=== PATIENT | male | born 1955 | race Caucasian/White ===

== ENCOUNTER 2019-06-02 08:45 | Inpatient (IN) | payer MEDICARE, OTHER ==
[~2019-06-02 08:45] MED LIST: ETOMIDATE 20 MG INJ
[2019-06-02] MEDS ORDERED: VANCOMYCIN IV PER PHARMACY XX (09:30)
[2019-06-02 10:22] LABS: ADD MAN DIFF? NO
[2019-06-02 10:25] LABS: WHITE BLOOD COUNT 14.5 10^3/ul (4.8-10.8)
[2019-06-02 10:25] LABS: BASOPHIL # 0.1 10^3/ul (0.0-0.1); BASOPHILS % 0.3 % (0.0-2.0); EOSINOPHILS % 0.2 % (0.0-7.0); HEMATOCRIT 28.5 % (42.0-52.0); HEMOGLOBIN 8.3 g/dl (14.0-18.0); LYMPHOCYTES % 7.1 % (15.0-51.0); MEAN CORPUSCULAR HEMOGLOBIN 30.1 pg (29.0-33.0); MEAN CORPUSCULAR HGB CONC 29.1 g/dl (32.0-37.0); MEAN CORPUSCULAR VOLUME 103.3 fl (82.0-101.0); MEAN PLATELET VOLUME 9.9 fl (7.4-10.4); MONOCYTE # 0.9 10^3/ul (0.3-0.9); MONOCYTES % 5.9 % (0.0-11.0); NEUTROPHIL # 12.2 10^3/ul (1.6-7.5); NEUTROPHILS % 84.4 % (39.0-77.0); NUCLEATED RED BLOOD CELLS% 0.1 /100WBC (0.0-0.0); PLATELET COUNT 372 10^3/UL (140-415); RED BLOOD COUNT 2.76 10^6/ul (4.70-6.10); RED CELL DISTRIBUTION WIDTH 18.7 % (11.5-14.5)
[2019-06-02 10:46] LABS: AADO2 Arterial 129.1 mmHg (7.0-24.0); Arterial Blood Gas Oxygen Sat 98.9 mmHG (95.0-98.0); Arterial COHb 0.3 % (0.0-3.0); Arterial Fraction of Oxyhgb 97.9 % (93.0-99.0); Arterial MetHb 0.7 % (0.0-1.5); Arterial pCO2 40.2 mmhg (35-45); Blood Gas IEPAP 15/5; MODE MASK - BIPAP; Site Right Brachial
[2019-06-02 10:50] LABS: ALANINE AMINOTRANSFERASE 18 IU/L (13-69); ALBUMIN 2.2 g/dl (3.3-4.9); ALBUMIN/GLOBULIN RATIO 0.53; ALKALINE PHOSPHATASE 102 IU/L (42-121); ANION GAP 9 (5-13); ASPARTATE AMINO TRANSFERASE 15 IU/L (15-46); BILIRUBIN,INDIRECT 0.1 mg/dl (0-1.1); BILIRUBIN,TOTAL 0.1 mg/dl (0.2-1.3); BLOOD UREA NITROGEN 104 mg/dl (7-20); CALCIUM 9.2 mg/dl (8.4-10.2); CARBON DIOXIDE 11 mmol/L (21-31); CHLORIDE 120 mmol/L (97-110); Estimated GFR 23 mL/min (>60); GLUCOSE 221 mg/dl (70-220); MAGNESIUM 2.5 mg/dl (1.7-2.5); PHOSPHORUS 3.7 mg/dl (2.5-4.9); POTASSIUM 4.1 mmol/L (3.5-5.1); SODIUM 140 mmol/L (135-144); TOTAL PROTEIN 6.3 g/dl (6.1-8.1)
[2019-06-02] MEDS ORDERED: METOCLOPRAMIDE 10 MG INJ IV (11:00)
[2019-06-02] MEDS ORDERED: ONDANSETRON 4 MG TAB PO (11:00)
[2019-06-02] MEDS: DEXTROSE 5%-0.9% NACL 1,000 ML IV (11:06)
[2019-06-02] MEDS: NA BICARBONATE 8.4% 50 ML SYG IV ×2 (11:06→16:59)
[2019-06-02 11:25] LABS: LACTIC ACID 1.1 mmol/L (0.5-2.0)
[2019-06-02] MEDS ORDERED: GLUCAGON 1 MG INJ IV (11:30)
[2019-06-02] MEDS ORDERED: hydrALAzine 20 MG INJ IV (11:30)
[2019-06-02] MEDS ORDERED: DEXTROSE 50% 50 ML SYRINGE IV (11:30)
[2019-06-02] MEDS: FENTAnyl 50 MCG/ML VIAL IV ×2 (11:45→12:00)
[2019-06-02] MEDS: SUCCINYLCHOLINE CHLORIDE 100 MG/5 ML SYG IV (12:00)
[2019-06-02] MEDS: ETOMIDATE 20 MG INJ IV (12:00)
[2019-06-02] MEDS ORDERED: FENTAnyl (DRIP) 1000 mcg/100mL 100 ML IV (12:00)
[2019-06-02] MEDS ORDERED: SODIUM BICARBONATE (IV ADD) 150 MEQ in DEXTROSE 5% 1,000 ML IV (12:30)
[2019-06-02] MEDS ORDERED: GENTAMICIN 0.3% 5 ML OPH BOTH EYES (13:00)
[2019-06-02] MEDS: SODIUM BICARBONATE IN D5W 1,000 ML IV ×3 (13:47→23:36)
[2019-06-02] MEDS: LACTATED RINGER'S 1,000 ML IV (13:47)
[2019-06-02 15:44] LABS: AADO2 Arterial 213.3 mmHg (7.0-24.0); Allen Test ACCEPTAB; Arterial Base Excess -15.2 mmol/L (-3.0-3); Arterial Blood Gas Oxygen Sat 99.5 mmHG (95.0-98.0); Arterial COHb 0.3 % (0.0-3.0); Arterial Fraction of Oxyhgb 98.8 % (93.0-99.0); Arterial HCO3 11.8 mmol/L (22.0-26.0); Arterial MetHb 0.4 % (0.0-1.5); Arterial pCO2 32.1 mmhg (35-45); MODE VENT - AC; Site Right Radial
[2019-06-02 16:33] LABS: CREATININE,URINE RANDOM 16.35 mg/dl (20-370)
[2019-06-02 16:33] LABS: SODIUM,URINE RANDOM 119 mmol/L (30-90)
[2019-06-02 16:52] LABS: PROTEIN URINE > 600.0 mg/dl (0.0-11.9)
[2019-06-02 16:56] LABS: UR COLOR YELLOW (YELLOW)
[2019-06-02 16:58] LABS: UR GRANULAR CAST FEW /HPF (NONE SEEN)
[2019-06-02] MEDS: PIPER-TAZO 3.375 GM IV (PMX) 100 ML IVPB ×2 (16:59→21:46)
[2019-06-02 17:02] LABS: UR CLARITY TURBID (CLEAR)
[2019-06-02 17:03] LABS: UR SPECIFIC GRAVITY (Dip) 1.017 (1.003-1.030); UR TOTAL PROTEIN (Dip) 2+ mg/dl (NEGATIVE)
[2019-06-02 17:04] LABS: UR BILIRUBIN (Dip) NEGATIVE (NEGATIVE); UR BLOOD (Dip) 2+ mg/dL (NEGATIVE); UR GLUCOSE (Dip) NEGATIVE (NEGATIVE); UR KETONES (Dip) NEGATIVE (NEGATIVE); UR NITRITE (Dip) NEGATIVE (NEGATIVE); UR UROBILINOGEN (Dip) NEGATIVE (NEGATIVE)
[2019-06-02 17:05] LABS: ADD UMIC YES; UR BACTERIA MANY /HPF (NONE SEEN); UR LEUKOCYTE ESTERASE (Dip) 1+ Leu/ul (NEGATIVE)
[2019-06-02 17:10] LABS: URINE SPECIFIC GRAVITY (Dip) 1.017 (1.003-1.030)
[2019-06-02 17:57] LABS: UR ASCORBIC ACID 40 mg/dL (NEGATIVE); UR RBC 0 /HPF (0-5)
[2019-06-02] MEDS: EPOETIN ALFA-EPBX (ESRD) 10,000 UNIT/ML VIAL SC (20:03)
[2019-06-02] MEDS ORDERED: PENDING SANTYL ORDER FOR WOUND CARE XX (20:30)
[2019-06-02] MEDS: BALSAM PERU/CASTOR OIL 60 GM TUBE TOP (20:46)
[2019-06-02] MEDS: CHOLECALCIFEROL 1,000 UNIT TAB NGT (20:46)
[2019-06-02] MEDS: ATORVASTATIN 10 MG TAB GTB (20:47)
[2019-06-02] MEDS ORDERED: APIXABAN 5 MG TABLET GTB (21:00)
[2019-06-02] MEDS: INSULIN ASPART [NOVOLOG] 3 ML PEN SC (21:00)
[2019-06-02] MEDS ORDERED: COLLAGENASE 5 GM (UD JAR) TOP (22:00)
[2019-06-03 05:13] LABS: AADO2 Arterial 271.6 mmHg (7.0-24.0); Allen Test ACCEPTAB; Arterial Base Excess -8.7 mmol/L (-3.0-3); Arterial Blood Gas Oxygen Sat 89.4 mmHG (95.0-98.0); Arterial COHb 0.3 % (0.0-3.0); Arterial Fraction of Oxyhgb 88.6 % (93.0-99.0); Arterial HCO3 15.6 mmol/L (22.0-26.0); Arterial MetHb 0.6 % (0.0-1.5); Arterial pCO2 28.6 mmhg (35-45); MODE VENT - AC; Site Right Radial
[2019-06-03 05:49] LABS: ADD MAN DIFF? NO
[2019-06-03 05:55] LABS: WHITE BLOOD COUNT 10.4 10^3/ul (4.8-10.8)
[2019-06-03 05:55] LABS: BASOPHILS % 0.3 % (0.0-2.0); EOSINOPHILS % 0.3 % (0.0-7.0); HEMATOCRIT 25.1 % (42.0-52.0); HEMOGLOBIN 7.7 g/dl (14.0-18.0); LYMPHOCYTES % 9.3 % (15.0-51.0); MEAN CORPUSCULAR HEMOGLOBIN 30.2 pg (29.0-33.0); MEAN CORPUSCULAR HGB CONC 30.7 g/dl (32.0-37.0); MEAN CORPUSCULAR VOLUME 98.4 fl (82.0-101.0); MEAN PLATELET VOLUME 10.4 fl (7.4-10.4); MONOCYTE # 0.7 10^3/ul (0.3-0.9); MONOCYTES % 7.1 % (0.0-11.0); NEUTROPHIL # 8.5 10^3/ul (1.6-7.5); NEUTROPHILS % 81.5 % (39.0-77.0); NUCLEATED RED BLOOD CELLS% 0.3 /100WBC (0.0-0.0); PLATELET COUNT 336 10^3/UL (140-415); RED BLOOD COUNT 2.55 10^6/ul (4.70-6.10); RED CELL DISTRIBUTION WIDTH 18.6 % (11.5-14.5)
[2019-06-03 06:16] LABS: ANION GAP 11 (5-13); BLOOD UREA NITROGEN 104 mg/dl (7-20); CARBON DIOXIDE 18 mmol/L (21-31); CHLORIDE 115 mmol/L (97-110); CREATININE 2.84 mg/dl (0.61-1.24); GLUCOSE 136 mg/dl (70-220); POTASSIUM 3.3 mmol/L (3.5-5.1); SODIUM 144 mmol/L (135-144)
[2019-06-03 06:16] LABS: VANCOMYCIN,RANDOM 17.1 ug/ml
[2019-06-03 06:17] LABS: ALANINE AMINOTRANSFERASE 16 IU/L (13-69); ALBUMIN 2.1 g/dl (3.3-4.9); ALBUMIN/GLOBULIN RATIO 0.53; ALKALINE PHOSPHATASE 78 IU/L (42-121); ASPARTATE AMINO TRANSFERASE 24 IU/L (15-46); BILIRUBIN,INDIRECT 0.2 mg/dl (0-1.1); BILIRUBIN,TOTAL 0.2 mg/dl (0.2-1.3); CALCIUM 8.7 mg/dl (8.4-10.2); Estimated GFR 23 mL/min (>60)
[2019-06-03] MEDS: FUROSEMIDE 40 MG INJ IV (06:17)
[2019-06-03] MEDS: PIPER-TAZO 3.375 GM IV (PMX) 100 ML IVPB (06:17)
[2019-06-03 06:21] LABS: LACTIC ACID 4.3 mmol/L (0.5-2.0)
[2019-06-03 06:22] LABS: INR 1.32; PROTIME 16.5 Sec (11.9-14.9); PT RATIO 1.3
[2019-06-03 08:24] LABS: RETICULOCYTE COUNT # 0.097 X10^6 (0.020-0.110); RETICULOCYTE COUNT % 3.9 % (0.5-1.5)
[2019-06-03 08:24] LABS: RETICULOCYTE RBC 2.48
[2019-06-03] MEDS: CHOLECALCIFEROL 1,000 UNIT TAB NGT ×2 (08:39→21:01)
[2019-06-03] MEDS: BALSAM PERU/CASTOR OIL 60 GM TUBE TOP ×2 (08:39→21:01)
[2019-06-03] MEDS: FERROUS SULFATE 60 MG/ML 5ML CUP NGT (08:39)
[2019-06-03] MEDS: ASPIRIN 81 MG TAB GTB (08:39)
[2019-06-03] MEDS: FINASTERIDE 5 MG TAB GTB (08:40)
[2019-06-03] MEDS: COLLAGENASE 5 GM (UD JAR) TOP (08:40)
[2019-06-03] MEDS: ASCORBIC ACID 500 MG TAB NGT (08:40)
[2019-06-03] MEDS: POTASSIUM CHLORIDE 20 MEQ POWDER FOR ORAL SOLN NGT (08:40)
[2019-06-03] MEDS: AMLODIPINE 5 MG TAB GTB (09:00)
[2019-06-03 09:03] LABS: IRON 14 ug/dl (35-150)
[2019-06-03] MEDS: INSULIN ASPART [NOVOLOG] 3 ML PEN SC ×2 (09:10→21:00)
[2019-06-03 09:12] LABS: % IRON SATURATION 10 % SAT (22-52); TOTAL IRON BINDING CAPACITY 136 ug/dl (241-421)
[2019-06-03] MEDS: VANCOMYCIN 500 MG (PMX) 100 ML IVPB (09:12)
[2019-06-03] MEDS: SODIUM BICARBONATE IN D5W 1,000 ML IV (09:15)
[2019-06-03 10:12] LABS: FOLATE 16.1 ng/ml (2.8-20.0)
[2019-06-03] MEDS: FLUCONAZOLE 100 MG TAB PO (17:41)
[2019-06-03] MEDS: VANCOMYCIN HCL 250 MG/5ML POSYG PO (18:52)
[2019-06-03] MEDS: MEROPENEM 500MG/50 ML (PMX) 50 ML IVPB (21:00)
[2019-06-03] MEDS: ATORVASTATIN 10 MG TAB GTB (21:01)
[2019-06-04] MEDS: VANCOMYCIN HCL 250 MG/5ML POSYG PO ×4 (00:23→18:28)
[2019-06-04] MEDS: SODIUM BICARBONATE IN D5W 1,000 ML IV (02:00)
[2019-06-04 05:47] LABS: ADD MAN DIFF? NO
[2019-06-04 05:50] LABS: WHITE BLOOD COUNT 12.2 10^3/ul (4.8-10.8)
[2019-06-04 05:50] LABS: BASOPHIL # 0.1 10^3/ul (0.0-0.1); BASOPHILS % 0.4 % (0.0-2.0); EOSINOPHILS # 0.1 10^3/ul (0.0-0.5); EOSINOPHILS % 0.4 % (0.0-7.0); HEMOGLOBIN 7.6 g/dl (14.0-18.0); LYMPHOCYTES # 1.3 10^3/ul (0.8-2.9); LYMPHOCYTES % 10.3 % (15.0-51.0); MEAN CORPUSCULAR HEMOGLOBIN 29.6 pg (29.0-33.0); MEAN CORPUSCULAR HGB CONC 30.4 g/dl (32.0-37.0); MEAN CORPUSCULAR VOLUME 97.3 fl (82.0-101.0); MEAN PLATELET VOLUME 10.5 fl (7.4-10.4); MONOCYTES % 7.9 % (0.0-11.0); NEUTROPHIL # 9.7 10^3/ul (1.6-7.5); NEUTROPHILS % 79.1 % (39.0-77.0); NUCLEATED RED BLOOD CELLS% 0.2 /100WBC (0.0-0.0); PLATELET COUNT 359 10^3/UL (140-415); RED BLOOD COUNT 2.57 10^6/ul (4.70-6.10)
[2019-06-04 05:59] LABS: AADO2 Arterial 151.5 mmHg (7.0-24.0); Allen Test ACCEPTAB; Arterial Blood Gas Oxygen Sat 97.8 mmHG (95.0-98.0); Arterial COHb 0.3 % (0.0-3.0); Arterial HCO3 19.3 mmol/L (22.0-26.0); Arterial MetHb 0.5 % (0.0-1.5); Arterial pCO2 28.6 mmhg (35-45); MODE VENT - AC; Site Right Radial
[2019-06-04 06:46] LABS: ANION GAP 13 (5-13); BLOOD UREA NITROGEN 110 mg/dl (7-20); CALCIUM 8.8 mg/dl (8.4-10.2); CARBON DIOXIDE 22 mmol/L (21-31); CHLORIDE 110 mmol/L (97-110); CREATININE 3.34 mg/dl (0.61-1.24); Estimated GFR 19 mL/min (>60); GLUCOSE 140 mg/dl (70-220); POTASSIUM 3.5 mmol/L (3.5-5.1); SODIUM 145 mmol/L (135-144)
[2019-06-04] MEDS: SOD CHLORIDE 0.45% 1,000 ML IV (09:50)
[2019-06-04] MEDS: MEROPENEM 500MG/50 ML (PMX) 50 ML IVPB ×2 (09:50→20:51)
[2019-06-04] MEDS: INSULIN ASPART [NOVOLOG] 3 ML PEN SC ×2 (09:54→21:02)
[2019-06-04] MEDS: FERROUS SULFATE 60 MG/ML 5ML CUP NGT (09:55)
[2019-06-04] MEDS: CHOLECALCIFEROL 1,000 UNIT TAB NGT ×2 (09:56→20:50)
[2019-06-04] MEDS: AMLODIPINE 5 MG TAB GTB (09:56)
[2019-06-04] MEDS: ASCORBIC ACID 500 MG TAB NGT (09:57)
[2019-06-04] MEDS: FINASTERIDE 5 MG TAB GTB (09:57)
[2019-06-04] MEDS: FLUCONAZOLE 100 MG TAB PO (09:57)
[2019-06-04] MEDS: BALSAM PERU/CASTOR OIL 60 GM TUBE TOP ×2 (09:59→20:55)
[2019-06-04] MEDS: COLLAGENASE 5 GM (UD JAR) TOP (09:59)
[2019-06-04 10:36] LABS: Allen Test ACCEPTAB; Arterial Base Excess -4.3 mmol/L (-3.0-3); Arterial COHb 0.3 % (0.0-3.0); Arterial Fraction of Oxyhgb 94.3 % (93.0-99.0); Arterial HCO3 19.6 mmol/L (22.0-26.0); Arterial MetHb 0.4 % (0.0-1.5); Arterial pCO2 31.4 mmhg (35-45); MODE VENT - AC; Site Left Radial
[2019-06-04 14:34] LABS: OCCULT BLOOD STOOL NEGATIVE (NEGATIVE)
[2019-06-04 17:36] LABS: CREATININE, RANDOM URINE 18 mg/dL (20-320); MICROALBUMIN/CREATININE RATIO 8667 (<30)
[2019-06-04] MEDS: ZYVOX 600 MG TAB PO (20:50)
[2019-06-04] MEDS: MUPIROCIN 2% 22 GM OINT TOP (20:57)
[2019-06-04] MEDS: ATORVASTATIN 10 MG TAB GTB (20:57)
[2019-06-05] MEDS: VANCOMYCIN HCL 250 MG/5ML POSYG PO ×5 (01:08→23:55)
[2019-06-05 04:34] LABS: ADD MAN DIFF? NO
[2019-06-05 04:37] LABS: WHITE BLOOD COUNT 11.5 10^3/ul (4.8-10.8)
[2019-06-05 04:37] LABS: BASOPHIL # 0.1 10^3/ul (0.0-0.1); BASOPHILS % 0.4 % (0.0-2.0); EOSINOPHILS # 0.2 10^3/ul (0.0-0.5); EOSINOPHILS % 1.6 % (0.0-7.0); HEMOGLOBIN 7.2 g/dl (14.0-18.0); LYMPHOCYTES # 1.1 10^3/ul (0.8-2.9); LYMPHOCYTES % 9.8 % (15.0-51.0); MEAN CORPUSCULAR HEMOGLOBIN 29.8 pg (29.0-33.0); MEAN CORPUSCULAR VOLUME 99.2 fl (82.0-101.0); MEAN PLATELET VOLUME 10.5 fl (7.4-10.4); MONOCYTES % 8.8 % (0.0-11.0); NEUTROPHIL # 8.9 10^3/ul (1.6-7.5); NEUTROPHILS % 77.1 % (39.0-77.0); NUCLEATED RED BLOOD CELLS% 0.2 /100WBC (0.0-0.0); PLATELET COUNT 307 10^3/UL (140-415); RED BLOOD COUNT 2.42 10^6/ul (4.70-6.10); RED CELL DISTRIBUTION WIDTH 19.1 % (11.5-14.5)
[2019-06-05 04:53] LABS: INR 1.19; PROTIME 15.2 Sec (11.9-14.9); PT RATIO 1.2
[2019-06-05 04:59] LABS: PARTIAL THROMBOPLASTIN TIME 40.5 Sec (23.0-35.0)
[2019-06-05 05:02] LABS: ANION GAP 12 (5-13); BLOOD UREA NITROGEN 111 mg/dl (7-20); CALCIUM 8.7 mg/dl (8.4-10.2); CARBON DIOXIDE 23 mmol/L (21-31); CHLORIDE 108 mmol/L (97-110); CREATININE 3.54 mg/dl (0.61-1.24); Estimated GFR 18 mL/min (>60); GLUCOSE 126 mg/dl (70-220); POTASSIUM 3.3 mmol/L (3.5-5.1); SODIUM 143 mmol/L (135-144)
[2019-06-05 05:06] LABS: B-TYPE NATRIURETIC PEPTIDE 6880 PG/ML (0-125)
[2019-06-05] MEDS: SOD CHLORIDE 0.45% 1,000 ML IV (05:27)
[2019-06-05] MEDS: FUROSEMIDE 40 MG INJ IV (07:55)
[2019-06-05] MEDS: POTASSIUM CHLORIDE 100 ML IVPB (07:55)
[2019-06-05] MEDS: ASCORBIC ACID 500 MG TAB NGT (08:35)
[2019-06-05] MEDS: COLLAGENASE 5 GM (UD JAR) TOP (08:35)
[2019-06-05] MEDS: CHOLECALCIFEROL 1,000 UNIT TAB NGT ×2 (08:35→21:11)
[2019-06-05] MEDS: AMLODIPINE 5 MG TAB GTB (08:36)
[2019-06-05] MEDS: FINASTERIDE 5 MG TAB GTB (08:36)
[2019-06-05] MEDS: ZYVOX 600 MG TAB PO ×2 (08:36→21:12)
[2019-06-05] MEDS: FLUCONAZOLE 100 MG TAB PO (08:36)
[2019-06-05] MEDS: ZINC SULFATE 220 MG CAP NGT (08:36)
[2019-06-05] MEDS: MEROPENEM 500MG/50 ML (PMX) 50 ML IVPB ×2 (08:37→21:11)
[2019-06-05] MEDS: FERROUS SULFATE 60 MG/ML 5ML CUP NGT (08:37)
[2019-06-05] MEDS: MUPIROCIN 2% 22 GM OINT TOP ×2 (08:38→21:13)
[2019-06-05] MEDS: BALSAM PERU/CASTOR OIL 60 GM TUBE TOP ×2 (08:38→21:13)
[2019-06-05] MEDS: INSULIN ASPART [NOVOLOG] 3 ML PEN SC ×2 (09:00→21:00)
[2019-06-05] MEDS ORDERED: CEFAZOLIN 1 GM INJ IV (13:30)
[2019-06-05] MEDS: CEFAZOLIN 2 GM/50 ML (PMX) 50 ML IVPB (15:44)
[2019-06-05] MEDS: APIXABAN 5 MG TABLET GTB (19:16)
[2019-06-05] MEDS: ATORVASTATIN 10 MG TAB GTB (21:13)
[2019-06-05] MEDS: FENTAnyl (DRIP) 1000 mcg/100mL 100 ML IV (22:32)
[2019-06-06] MEDS: PANTOPRAZOLE 40 MG INJ IV (05:06)
[2019-06-06 05:07] LABS: ADD MAN DIFF? NO
[2019-06-06] MEDS: VANCOMYCIN HCL 250 MG/5ML POSYG PO ×4 (05:07→23:53)
[2019-06-06 05:13] LABS: ABNORMAL IP MESSAGE 1; BASOPHILS % 0.4 % (0.0-2.0); EOSINOPHILS # 0.2 10^3/ul (0.0-0.5); EOSINOPHILS % 1.6 % (0.0-7.0); HEMOGLOBIN 7.5 g/dl (14.0-18.0); LYMPHOCYTES # 0.5 10^3/ul (0.8-2.9); LYMPHOCYTES % 5.4 % (15.0-51.0); MEAN CORPUSCULAR HEMOGLOBIN 29.8 pg (29.0-33.0); MEAN CORPUSCULAR VOLUME 99.2 fl (82.0-101.0); MEAN PLATELET VOLUME 10.6 fl (7.4-10.4); MONOCYTE # 0.6 10^3/ul (0.3-0.9); NEUTROPHIL # 7.8 10^3/ul (1.6-7.5); NEUTROPHILS % 84.1 % (39.0-77.0); NUCLEATED RED BLOOD CELLS% 0.2 /100WBC (0.0-0.0); PLATELET COUNT 300 10^3/UL (140-415); POSITIVE DIFF @See below; RED BLOOD COUNT 2.52 10^6/ul (4.70-6.10); RED CELL DISTRIBUTION WIDTH 18.7 % (11.5-14.5)
[2019-06-06 05:13] LABS: WHITE BLOOD COUNT 9.3 10^3/ul (4.8-10.8)
[2019-06-06 05:33] LABS: ANION GAP 11 (5-13); BLOOD UREA NITROGEN 114 mg/dl (7-20); CALCIUM 8.7 mg/dl (8.4-10.2); CARBON DIOXIDE 22 mmol/L (21-31); CHLORIDE 110 mmol/L (97-110); Estimated GFR 17 mL/min (>60); GLUCOSE 64 mg/dl (70-220); POTASSIUM 3.6 mmol/L (3.5-5.1); SODIUM 143 mmol/L (135-144)
[2019-06-06] MEDS: NORepinephrine 8MG/250 ML (PMX 250 ML IV (05:49)
[2019-06-06] MEDS: FUROSEMIDE 40 MG INJ IV (07:42)
[2019-06-06] MEDS: INSULIN ASPART [NOVOLOG] 3 ML PEN SC ×2 (08:07→20:31)
[2019-06-06] MEDS: FLUCONAZOLE 100 MG TAB PO (08:07)
[2019-06-06] MEDS: CHOLECALCIFEROL 1,000 UNIT TAB NGT ×2 (08:07→20:30)
[2019-06-06] MEDS: ZYVOX 600 MG TAB PO ×2 (08:07→20:30)
[2019-06-06] MEDS: ZINC SULFATE 220 MG CAP NGT (08:07)
[2019-06-06] MEDS: FINASTERIDE 5 MG TAB GTB (08:08)
[2019-06-06] MEDS: FERROUS SULFATE 60 MG/ML 5ML CUP NGT (08:08)
[2019-06-06] MEDS: MEROPENEM 500MG/50 ML (PMX) 50 ML IVPB ×2 (08:08→20:29)
[2019-06-06] MEDS: ASCORBIC ACID 500 MG TAB NGT (08:08)
[2019-06-06] MEDS: MUPIROCIN 2% 22 GM OINT TOP ×2 (08:08→20:31)
[2019-06-06] MEDS: BALSAM PERU/CASTOR OIL 60 GM TUBE TOP ×2 (08:09→20:31)
[2019-06-06] MEDS: COLLAGENASE 5 GM (UD JAR) TOP (08:09)
[2019-06-06] MEDS: AMLODIPINE 5 MG TAB GTB (09:00)
[2019-06-06] MEDS: APIXABAN 5 MG TABLET GTB ×2 (09:48→20:30)
[2019-06-06] MEDS ORDERED: NORepinephrine 8MG/250 ML (PMX 250 ML IV ×2 (10:00→18:30)
[2019-06-06 11:41] LABS: AADO2 Arterial 89.6 mmHg (7.0-24.0); Allen Test ACCEPTAB; Arterial Base Excess -5.9 mmol/L (-3.0-3); Arterial Blood Gas Oxygen Sat 96.3 mmHG (95.0-98.0); Arterial COHb 0.3 % (0.0-3.0); Arterial Fraction of Oxyhgb 95.6 % (93.0-99.0); Arterial HCO3 18.7 mmol/L (22.0-26.0); Arterial MetHb 0.4 % (0.0-1.5); Arterial pCO2 33.1 mmhg (35-45); Blood Gas PS 10; MODE VENT - CPAP; Site Right Radial
[2019-06-06] MEDS: ATORVASTATIN 10 MG TAB GTB (20:31)
[2019-06-06 21:41] LABS: IMMEDIATE SPIN CROSSMATCH 1 1
[2019-06-06] MEDS: SOD CHLORIDE 0.9% 250 ML IV* (21:50)
[2019-06-07 04:49] LABS: ADD MAN DIFF? NO
[2019-06-07 04:52] LABS: BASOPHIL # 0.1 10^3/ul (0.0-0.1); BASOPHILS % 0.6 % (0.0-2.0); EOSINOPHILS # 0.2 10^3/ul (0.0-0.5); EOSINOPHILS % 2.2 % (0.0-7.0); HEMOGLOBIN 8.7 g/dl (14.0-18.0); LYMPHOCYTES # 1.1 10^3/ul (0.8-2.9); LYMPHOCYTES % 12.1 % (15.0-51.0); MEAN CORPUSCULAR HEMOGLOBIN 29.7 pg (29.0-33.0); MEAN PLATELET VOLUME 10.5 fl (7.4-10.4); MONOCYTE # 0.7 10^3/ul (0.3-0.9); MONOCYTES % 7.5 % (0.0-11.0); NEUTROPHIL # 6.6 10^3/ul (1.6-7.5); NEUTROPHILS % 74.9 % (39.0-77.0); PLATELET COUNT 278 10^3/UL (140-415); RED BLOOD COUNT 2.93 10^6/ul (4.70-6.10); RED CELL DISTRIBUTION WIDTH 17.8 % (11.5-14.5)
[2019-06-07 04:52] LABS: WHITE BLOOD COUNT 8.8 10^3/ul (4.8-10.8)
[2019-06-07 05:12] LABS: ANION GAP 11 (5-13); BLOOD UREA NITROGEN 110 mg/dl (7-20); CALCIUM 8.8 mg/dl (8.4-10.2); CARBON DIOXIDE 18 mmol/L (21-31); CHLORIDE 113 mmol/L (97-110); CREATININE 3.93 mg/dl (0.61-1.24); Estimated GFR 16 mL/min (>60); GLUCOSE 96 mg/dl (70-220); POTASSIUM 3.6 mmol/L (3.5-5.1); SODIUM 142 mmol/L (135-144)
[2019-06-07] MEDS: PANTOPRAZOLE 40 MG INJ IV (05:16)
[2019-06-07] MEDS: VANCOMYCIN HCL 250 MG/5ML POSYG PO ×3 (05:16→18:01)
[2019-06-07] MEDS: FLUCONAZOLE 100 MG TAB PO (08:54)
[2019-06-07] MEDS: ZYVOX 600 MG TAB PO (08:54)
[2019-06-07] MEDS: ZINC SULFATE 220 MG CAP NGT (08:54)
[2019-06-07] MEDS: APIXABAN 5 MG TABLET GTB ×2 (08:54→20:50)
[2019-06-07] MEDS: FERROUS SULFATE 60 MG/ML 5ML CUP NGT (08:54)
[2019-06-07] MEDS: CHOLECALCIFEROL 1,000 UNIT TAB NGT ×2 (08:54→20:52)
[2019-06-07] MEDS: FINASTERIDE 5 MG TAB GTB (08:55)
[2019-06-07] MEDS: MEROPENEM 500MG/50 ML (PMX) 50 ML IVPB ×2 (08:56→20:50)
[2019-06-07] MEDS: ASCORBIC ACID 500 MG TAB NGT (08:56)
[2019-06-07] MEDS: AMLODIPINE 5 MG TAB GTB (08:56)
[2019-06-07] MEDS: BALSAM PERU/CASTOR OIL 60 GM TUBE TOP ×2 (08:58→20:57)
[2019-06-07] MEDS: COLLAGENASE 5 GM (UD JAR) TOP (08:59)
[2019-06-07] MEDS: MUPIROCIN 2% 22 GM OINT TOP ×2 (08:59→20:57)
[2019-06-07] MEDS: ASPIRIN 81 MG TAB GTB (09:00)
[2019-06-07] MEDS: INSULIN ASPART [NOVOLOG] 3 ML PEN SC ×2 (09:43→21:26)
[2019-06-07] MEDS: ATORVASTATIN 10 MG TAB GTB (20:52)
[2019-06-07] MEDS: DOXYCYCLINE 100 MG TAB PO (20:53)
[2019-06-08] MEDS: VANCOMYCIN HCL 250 MG/5ML POSYG PO ×4 (00:26→17:32)
[2019-06-08] MEDS: PANTOPRAZOLE 40 MG INJ IV (05:48)
[2019-06-08 06:30] LABS: ADD MAN DIFF? NO
[2019-06-08 06:32] LABS: BASOPHILS % 0.4 % (0.0-2.0); EOSINOPHILS # 0.3 10^3/ul (0.0-0.5); EOSINOPHILS % 2.3 % (0.0-7.0); HEMATOCRIT 30.6 % (42.0-52.0); HEMOGLOBIN 9.3 g/dl (14.0-18.0); LYMPHOCYTES # 1.2 10^3/ul (0.8-2.9); LYMPHOCYTES % 10.6 % (15.0-51.0); MEAN CORPUSCULAR HEMOGLOBIN 30.2 pg (29.0-33.0); MEAN CORPUSCULAR HGB CONC 30.4 g/dl (32.0-37.0); MEAN CORPUSCULAR VOLUME 99.4 fl (82.0-101.0); MEAN PLATELET VOLUME 10.1 fl (7.4-10.4); MONOCYTE # 0.5 10^3/ul (0.3-0.9); MONOCYTES % 4.9 % (0.0-11.0); NEUTROPHIL # 8.9 10^3/ul (1.6-7.5); NEUTROPHILS % 79.9 % (39.0-77.0); PLATELET COUNT 254 10^3/UL (140-415); RED BLOOD COUNT 3.08 10^6/ul (4.70-6.10); RED CELL DISTRIBUTION WIDTH 17.7 % (11.5-14.5)
[2019-06-08 06:32] LABS: WHITE BLOOD COUNT 11.1 10^3/ul (4.8-10.8)
[2019-06-08 07:14] LABS: ANION GAP 12 (5-13); BLOOD UREA NITROGEN 116 mg/dl (7-20); CALCIUM 8.7 mg/dl (8.4-10.2); CARBON DIOXIDE 17 mmol/L (21-31); CHLORIDE 114 mmol/L (97-110); CREATININE 4.06 mg/dl (0.61-1.24); Estimated GFR 15 mL/min (>60); GLUCOSE 184 mg/dl (70-220); POTASSIUM 3.4 mmol/L (3.5-5.1); SODIUM 143 mmol/L (135-144)
[2019-06-08] MEDS: COLLAGENASE 5 GM (UD JAR) TOP (09:00)
[2019-06-08] MEDS: MUPIROCIN 2% 22 GM OINT TOP ×2 (09:00→21:06)
[2019-06-08] MEDS: INSULIN ASPART [NOVOLOG] 3 ML PEN SC ×2 (09:00→21:18)
[2019-06-08] MEDS: APIXABAN 5 MG TABLET GTB ×2 (09:47→21:03)
[2019-06-08] MEDS: FINASTERIDE 5 MG TAB GTB (09:47)
[2019-06-08] MEDS: ASPIRIN 81 MG TAB GTB (09:47)
[2019-06-08] MEDS: ASCORBIC ACID 500 MG TAB NGT (09:47)
[2019-06-08] MEDS: ZINC SULFATE 220 MG CAP NGT (09:47)
[2019-06-08] MEDS: FLUCONAZOLE 100 MG TAB PO (09:47)
[2019-06-08] MEDS: CHOLECALCIFEROL 1,000 UNIT TAB NGT ×2 (09:47→21:03)
[2019-06-08] MEDS: DOXYCYCLINE 100 MG TAB PO ×2 (09:48→21:03)
[2019-06-08] MEDS: AMLODIPINE 5 MG TAB GTB (09:50)
[2019-06-08] MEDS: FERROUS SULFATE 60 MG/ML 5ML CUP NGT (09:59)
[2019-06-08] MEDS: MEROPENEM 500MG/50 ML (PMX) 50 ML IVPB ×2 (10:07→20:57)
[2019-06-08] MEDS: BALSAM PERU/CASTOR OIL 60 GM TUBE TOP ×2 (11:31→21:04)
[2019-06-08] MEDS: DEXTROSE 5%-0.9% NACL 1,000 ML IV ×2 (11:48→23:16)
[2019-06-08] MEDS: ATORVASTATIN 10 MG TAB GTB (21:04)
[2019-06-09] MEDS: VANCOMYCIN HCL 250 MG/5ML POSYG PO ×4 (00:27→17:10)
[2019-06-09] MEDS: DEXTROSE 5%-0.9% NACL 1,000 ML IV (05:28)
[2019-06-09] MEDS: PANTOPRAZOLE 40 MG INJ IV (06:28)
[2019-06-09 07:04] LABS: ADD MAN DIFF? NO
[2019-06-09 07:17] LABS: BASOPHIL # 0.1 10^3/ul (0.0-0.1); BASOPHILS % 0.5 % (0.0-2.0); EOSINOPHILS # 0.2 10^3/ul (0.0-0.5); EOSINOPHILS % 2.4 % (0.0-7.0); HEMATOCRIT 28.2 % (42.0-52.0); HEMOGLOBIN 8.4 g/dl (14.0-18.0); LYMPHOCYTES # 1.1 10^3/ul (0.8-2.9); LYMPHOCYTES % 10.9 % (15.0-51.0); MEAN CORPUSCULAR HGB CONC 29.8 g/dl (32.0-37.0); MEAN CORPUSCULAR VOLUME 100.7 fl (82.0-101.0); MEAN PLATELET VOLUME 10.8 fl (7.4-10.4); MONOCYTE # 0.6 10^3/ul (0.3-0.9); MONOCYTES % 5.4 % (0.0-11.0); NEUTROPHILS % 79.2 % (39.0-77.0); PLATELET COUNT 225 10^3/UL (140-415); RED CELL DISTRIBUTION WIDTH 17.8 % (11.5-14.5)
[2019-06-09 07:17] LABS: WHITE BLOOD COUNT 10.1 10^3/ul (4.8-10.8)
[2019-06-09 07:50] LABS: ANION GAP 11 (5-13); BLOOD UREA NITROGEN 114 mg/dl (7-20); CALCIUM 7.9 mg/dl (8.4-10.2); CARBON DIOXIDE 15 mmol/L (21-31); CHLORIDE 117 mmol/L (97-110); CREATININE 3.79 mg/dl (0.61-1.24); Estimated GFR 16 mL/min (>60); SODIUM 143 mmol/L (135-144)
[2019-06-09 08:04] LABS: GLUCOSE 429 mg/dl (70-220)
[2019-06-09] MEDS: CHOLECALCIFEROL 1,000 UNIT TAB NGT ×2 (08:33→22:17)
[2019-06-09] MEDS: FLUCONAZOLE 100 MG TAB PO (08:33)
[2019-06-09] MEDS: FERROUS SULFATE 60 MG/ML 5ML CUP NGT (08:33)
[2019-06-09] MEDS: MEROPENEM 500MG/50 ML (PMX) 50 ML IVPB ×2 (08:33→22:20)
[2019-06-09] MEDS: ASPIRIN 81 MG TAB GTB (08:33)
[2019-06-09] MEDS: COLLAGENASE 5 GM (UD JAR) TOP (08:33)
[2019-06-09] MEDS: ZINC SULFATE 220 MG CAP NGT (08:33)
[2019-06-09] MEDS: DOXYCYCLINE 100 MG TAB PO ×2 (08:34→22:18)
[2019-06-09] MEDS: FINASTERIDE 5 MG TAB GTB (08:34)
[2019-06-09] MEDS: APIXABAN 5 MG TABLET GTB ×2 (08:34→22:18)
[2019-06-09] MEDS: ASCORBIC ACID 500 MG TAB NGT (08:34)
[2019-06-09] MEDS: AMLODIPINE 5 MG TAB GTB (08:35)
[2019-06-09] MEDS: MUPIROCIN 2% 22 GM OINT TOP ×2 (08:36→22:19)
[2019-06-09] MEDS: BALSAM PERU/CASTOR OIL 60 GM TUBE TOP ×2 (08:36→22:19)
[2019-06-09] MEDS: INSULIN ASPART [NOVOLOG] 3 ML PEN SC ×2 (08:41→22:16)
[2019-06-09 11:05] LABS: ANION GAP 12 (5-13); CALCIUM 8.6 mg/dl (8.4-10.2); CARBON DIOXIDE 15 mmol/L (21-31); CHLORIDE 115 mmol/L (97-110); CREATININE 4.19 mg/dl (0.61-1.24); Estimated GFR 14 mL/min (>60); GLUCOSE 170 mg/dl (70-220); SODIUM 142 mmol/L (135-144)
[2019-06-09 11:06] LABS: POTASSIUM 3.1 mmol/L (3.5-5.1)
[2019-06-09 11:13] LABS: BLOOD UREA NITROGEN 120 mg/dl (7-20)
[2019-06-09] MEDS: POTASSIUM CHLORIDE 10 MEQ in SOD CHLORIDE 0.9% 1,000 ML IV ×2 (14:24→22:50)
[2019-06-09] MEDS: POTASSIUM CHLORIDE 20 MEQ POWDER FOR ORAL SOLN GTB (14:25)
[2019-06-09] MEDS: EPOETIN ALFA-EPBX (ESRD) 10,000 UNIT/ML VIAL SC (17:10)
[2019-06-09] MEDS: ATORVASTATIN 10 MG TAB GTB (22:18)
[2019-06-10] MEDS: VANCOMYCIN HCL 250 MG/5ML POSYG PO ×4 (00:24→18:16)
[2019-06-10] MEDS: PANTOPRAZOLE 40 MG INJ IV (06:06)
[2019-06-10 06:09] LABS: ADD MAN DIFF? NO
[2019-06-10 06:18] LABS: BASOPHIL # 0.1 10^3/ul (0.0-0.1); BASOPHILS % 0.6 % (0.0-2.0); EOSINOPHILS # 0.2 10^3/ul (0.0-0.5); EOSINOPHILS % 2.1 % (0.0-7.0); HEMATOCRIT 28.5 % (42.0-52.0); HEMOGLOBIN 8.6 g/dl (14.0-18.0); LYMPHOCYTES # 1.2 10^3/ul (0.8-2.9); LYMPHOCYTES % 10.2 % (15.0-51.0); MEAN CORPUSCULAR HEMOGLOBIN 30.1 pg (29.0-33.0); MEAN CORPUSCULAR HGB CONC 30.2 g/dl (32.0-37.0); MEAN CORPUSCULAR VOLUME 99.7 fl (82.0-101.0); MEAN PLATELET VOLUME 10.6 fl (7.4-10.4); MONOCYTE # 0.6 10^3/ul (0.3-0.9); NEUTROPHIL # 9.2 10^3/ul (1.6-7.5); NEUTROPHILS % 80.6 % (39.0-77.0); PLATELET COUNT 234 10^3/UL (140-415); RED BLOOD COUNT 2.86 10^6/ul (4.70-6.10); RED CELL DISTRIBUTION WIDTH 17.7 % (11.5-14.5)
[2019-06-10 06:18] LABS: WHITE BLOOD COUNT 11.4 10^3/ul (4.8-10.8)
[2019-06-10 06:40] LABS: ANION GAP 10 (5-13); CALCIUM 8.5 mg/dl (8.4-10.2); CARBON DIOXIDE 16 mmol/L (21-31); CHLORIDE 117 mmol/L (97-110); CREATININE 3.96 mg/dl (0.61-1.24); Estimated GFR 15 mL/min (>60); GLUCOSE 117 mg/dl (70-220); POTASSIUM 3.9 mmol/L (3.5-5.1); SODIUM 143 mmol/L (135-144)
[2019-06-10 06:49] LABS: BLOOD UREA NITROGEN 123 mg/dl (7-20)
[2019-06-10] MEDS: POTASSIUM CHLORIDE 10 MEQ in SOD CHLORIDE 0.9% 1,000 ML IV ×2 (07:06→10:07)
[2019-06-10] MEDS: INSULIN ASPART [NOVOLOG] 3 ML PEN SC ×2 (09:00→20:24)
[2019-06-10] MEDS: MUPIROCIN 2% 22 GM OINT TOP ×2 (10:07→20:27)
[2019-06-10] MEDS: COLLAGENASE 5 GM (UD JAR) TOP ×2 (10:08→18:15)
[2019-06-10] MEDS: BALSAM PERU/CASTOR OIL 60 GM TUBE TOP ×2 (10:08→20:27)
[2019-06-10] MEDS: FERROUS SULFATE 60 MG/ML 5ML CUP NGT (10:11)
[2019-06-10] MEDS: FINASTERIDE 5 MG TAB GTB (10:12)
[2019-06-10] MEDS: FLUCONAZOLE 100 MG TAB PO (10:12)
[2019-06-10] MEDS: ZINC SULFATE 220 MG CAP NGT (10:12)
[2019-06-10] MEDS: DOXYCYCLINE 100 MG TAB PO ×2 (10:12→20:25)
[2019-06-10] MEDS: ASCORBIC ACID 500 MG TAB NGT (10:12)
[2019-06-10] MEDS: AMLODIPINE 5 MG TAB GTB (10:12)
[2019-06-10] MEDS: ASPIRIN 81 MG TAB GTB (10:12)
[2019-06-10] MEDS: CHOLECALCIFEROL 1,000 UNIT TAB NGT ×2 (10:12→20:25)
[2019-06-10] MEDS: MEROPENEM 500MG/50 ML (PMX) 50 ML IVPB ×2 (10:13→20:24)
[2019-06-10] MEDS: APIXABAN 5 MG TABLET GTB (10:22)
[2019-06-10] MEDS: traMADol 50 MG TAB GTB (10:22)
[2019-06-10] MEDS: ATORVASTATIN 10 MG TAB GTB (20:25)
[2019-06-11] MEDS: VANCOMYCIN HCL 250 MG/5ML POSYG PO ×4 (01:13→17:20)
[2019-06-11] MEDS: LANSOPRAZOLE (SOLTAB) 30 MG TAB GTB (06:06)
[2019-06-11] MEDS: POTASSIUM CHLORIDE 10 MEQ in SOD CHLORIDE 0.9% 1,000 ML IV (07:25)
[2019-06-11 08:47] LABS: ADD MAN DIFF? NO
[2019-06-11 08:58] LABS: BASOPHIL # 0.1 10^3/ul (0.0-0.1); BASOPHILS % 0.6 % (0.0-2.0); EOSINOPHILS # 0.3 10^3/ul (0.0-0.5); EOSINOPHILS % 2.9 % (0.0-7.0); HEMATOCRIT 30.4 % (42.0-52.0); LYMPHOCYTES % 8.7 % (15.0-51.0); MEAN CORPUSCULAR HEMOGLOBIN 29.8 pg (29.0-33.0); MEAN CORPUSCULAR HGB CONC 29.6 g/dl (32.0-37.0); MEAN CORPUSCULAR VOLUME 100.7 fl (82.0-101.0); MEAN PLATELET VOLUME 10.8 fl (7.4-10.4); MONOCYTE # 0.6 10^3/ul (0.3-0.9); MONOCYTES % 5.3 % (0.0-11.0); NEUTROPHIL # 9.5 10^3/ul (1.6-7.5); PLATELET COUNT 235 10^3/UL (140-415); RED BLOOD COUNT 3.02 10^6/ul (4.70-6.10); RED CELL DISTRIBUTION WIDTH 17.6 % (11.5-14.5)
[2019-06-11 08:58] LABS: WHITE BLOOD COUNT 11.7 10^3/ul (4.8-10.8)
[2019-06-11] MEDS: INSULIN ASPART [NOVOLOG] 3 ML PEN SC ×2 (09:00→22:08)
[2019-06-11] MEDS: POLYETHYLENE GLYCOL 17 GM PACKET GTB (09:00)
[2019-06-11] MEDS: MEROPENEM 500MG/50 ML (PMX) 50 ML IVPB ×2 (09:04→22:08)
[2019-06-11] MEDS: CHOLECALCIFEROL 1,000 UNIT TAB NGT ×2 (09:06→22:03)
[2019-06-11] MEDS: DOXYCYCLINE 100 MG TAB PO ×2 (09:06→22:03)
[2019-06-11] MEDS: AMLODIPINE 5 MG TAB GTB (09:06)
[2019-06-11] MEDS: FLUCONAZOLE 100 MG TAB PO (09:06)
[2019-06-11] MEDS: ASCORBIC ACID 500 MG TAB NGT (09:06)
[2019-06-11] MEDS: FERROUS SULFATE 60 MG/ML 5ML CUP NGT (09:06)
[2019-06-11] MEDS: ZINC SULFATE 220 MG CAP NGT (09:06)
[2019-06-11] MEDS: ASPIRIN 81 MG TAB GTB (09:07)
[2019-06-11] MEDS: FINASTERIDE 5 MG TAB GTB (09:07)
[2019-06-11] MEDS: BALSAM PERU/CASTOR OIL 60 GM TUBE TOP ×2 (09:08→22:04)
[2019-06-11] MEDS: MUPIROCIN 2% 22 GM OINT TOP ×2 (09:08→22:08)
[2019-06-11 09:20] LABS: ANION GAP 13 (5-13); CALCIUM 8.7 mg/dl (8.4-10.2); CARBON DIOXIDE 12 mmol/L (21-31); CHLORIDE 118 mmol/L (97-110); CREATININE 4.13 mg/dl (0.61-1.24); Estimated GFR 15 mL/min (>60); GLUCOSE 104 mg/dl (70-220); MAGNESIUM 2.3 mg/dl (1.7-2.5); PHOSPHORUS 4.9 mg/dl (2.5-4.9); SODIUM 143 mmol/L (135-144)
[2019-06-11 09:35] LABS: BLOOD UREA NITROGEN 124 mg/dl (7-20)
[2019-06-11 09:55] LABS: POTASSIUM 4.2 mmol/L (3.5-5.1)
[2019-06-11] MEDS: traMADol 50 MG TAB GTB ×2 (13:58→22:04)
[2019-06-11] MEDS: ATORVASTATIN 10 MG TAB GTB (22:04)
[2019-06-12] MEDS: VANCOMYCIN HCL 250 MG/5ML POSYG PO ×5 (02:56→23:44)
[2019-06-12] MEDS: POTASSIUM CHLORIDE 10 MEQ in SOD CHLORIDE 0.9% 1,000 ML IV (04:47)
[2019-06-12] MEDS: LANSOPRAZOLE (SOLTAB) 30 MG TAB GTB (04:55)
[2019-06-12 07:05] LABS: ADD MAN DIFF? NO
[2019-06-12 07:09] LABS: BASOPHIL # 0.1 10^3/ul (0.0-0.1); BASOPHILS % 0.7 % (0.0-2.0); EOSINOPHILS # 0.3 10^3/ul (0.0-0.5); EOSINOPHILS % 2.8 % (0.0-7.0); HEMATOCRIT 31.2 % (42.0-52.0); HEMOGLOBIN 9.1 g/dl (14.0-18.0); LYMPHOCYTES # 1.4 10^3/ul (0.8-2.9); MEAN CORPUSCULAR HEMOGLOBIN 29.9 pg (29.0-33.0); MEAN CORPUSCULAR HGB CONC 29.2 g/dl (32.0-37.0); MEAN CORPUSCULAR VOLUME 102.6 fl (82.0-101.0); MEAN PLATELET VOLUME 10.7 fl (7.4-10.4); MONOCYTE # 0.7 10^3/ul (0.3-0.9); NEUTROPHIL # 8.7 10^3/ul (1.6-7.5); NEUTROPHILS % 77.2 % (39.0-77.0); PLATELET COUNT 234 10^3/UL (140-415); RED BLOOD COUNT 3.04 10^6/ul (4.70-6.10); RED CELL DISTRIBUTION WIDTH 17.8 % (11.5-14.5)
[2019-06-12 07:09] LABS: WHITE BLOOD COUNT 11.3 10^3/ul (4.8-10.8)
[2019-06-12 07:26] LABS: ANION GAP 10 (5-13); CALCIUM 8.6 mg/dl (8.4-10.2); CARBON DIOXIDE 12 mmol/L (21-31); CHLORIDE 121 mmol/L (97-110); CREATININE 3.96 mg/dl (0.61-1.24); Estimated GFR 15 mL/min (>60); GLUCOSE 94 mg/dl (70-220); MAGNESIUM 2.2 mg/dl (1.7-2.5); PHOSPHORUS 5.2 mg/dl (2.5-4.9); POTASSIUM 4.3 mmol/L (3.5-5.1); SODIUM 143 mmol/L (135-144)
[2019-06-12 07:34] LABS: BLOOD UREA NITROGEN 127 mg/dl (7-20)
[2019-06-12] MEDS: POLYETHYLENE GLYCOL 17 GM PACKET GTB (08:42)
[2019-06-12] MEDS: CHOLECALCIFEROL 1,000 UNIT TAB NGT ×2 (08:43→22:03)
[2019-06-12] MEDS: FINASTERIDE 5 MG TAB GTB (08:43)
[2019-06-12] MEDS: FERROUS SULFATE 60 MG/ML 5ML CUP NGT (08:43)
[2019-06-12] MEDS: COLLAGENASE 5 GM (UD JAR) TOP (08:43)
[2019-06-12] MEDS: ZINC SULFATE 220 MG CAP NGT (08:43)
[2019-06-12] MEDS: ASPIRIN 81 MG TAB GTB (08:44)
[2019-06-12] MEDS: ASCORBIC ACID 500 MG TAB NGT (08:44)
[2019-06-12] MEDS: AMLODIPINE 5 MG TAB GTB (08:44)
[2019-06-12] MEDS: MUPIROCIN 2% 22 GM OINT TOP ×2 (08:45→22:04)
[2019-06-12] MEDS: BALSAM PERU/CASTOR OIL 60 GM TUBE TOP ×2 (08:46→22:04)
[2019-06-12] MEDS: INSULIN ASPART [NOVOLOG] 3 ML PEN SC ×2 (08:50→22:01)
[2019-06-12] MEDS ORDERED: COLLAGENASE 5 GM (UD JAR) TOP (16:00)
[2019-06-12] MEDS: DOXYCYCLINE 100 MG TAB PO (22:03)
[2019-06-12] MEDS: ATORVASTATIN 10 MG TAB GTB (22:03)
[2019-06-13] MEDS: DIPHENHYDRAMINE 50 MG INJ IV (03:18)
[2019-06-13] MEDS: VANCOMYCIN HCL 250 MG/5ML POSYG PO ×3 (06:13→18:57)
[2019-06-13] MEDS: LANSOPRAZOLE (SOLTAB) 30 MG TAB GTB (06:14)
[2019-06-13] MEDS: CITRIC ACID/NA CITRATE 30 ML CUP PO ×3 (08:58→22:06)
[2019-06-13] MEDS: ZINC SULFATE 220 MG CAP NGT (08:59)
[2019-06-13] MEDS: FERROUS SULFATE 60 MG/ML 5ML CUP NGT (08:59)
[2019-06-13] MEDS: COLLAGENASE 5 GM (UD JAR) TOP (08:59)
[2019-06-13] MEDS: FINASTERIDE 5 MG TAB GTB (08:59)
[2019-06-13] MEDS: CHOLECALCIFEROL 1,000 UNIT TAB NGT ×2 (08:59→22:04)
[2019-06-13] MEDS: ASCORBIC ACID 500 MG TAB NGT (09:00)
[2019-06-13] MEDS: AMLODIPINE 5 MG TAB GTB (09:00)
[2019-06-13] MEDS: ASPIRIN 81 MG TAB GTB (09:00)
[2019-06-13] MEDS: INSULIN ASPART [NOVOLOG] 3 ML PEN SC ×2 (09:00→21:00)
[2019-06-13] MEDS: DOXYCYCLINE 100 MG TAB PO ×2 (09:00→22:05)
[2019-06-13] MEDS: BALSAM PERU/CASTOR OIL 60 GM TUBE TOP ×2 (09:06→21:00)
[2019-06-13] MEDS: MUPIROCIN 2% 22 GM OINT TOP ×2 (09:06→21:00)
[2019-06-13 09:13] LABS: ADD MAN DIFF? NO
[2019-06-13 09:27] LABS: ABNORMAL IP MESSAGE 1; BASOPHIL # 0.1 10^3/ul (0.0-0.1); BASOPHILS % 0.9 % (0.0-2.0); EOSINOPHILS # 0.3 10^3/ul (0.0-0.5); EOSINOPHILS % 3.1 % (0.0-7.0); HEMATOCRIT 30.9 % (42.0-52.0); HEMOGLOBIN 8.8 g/dl (14.0-18.0); LYMPHOCYTES # 1.3 10^3/ul (0.8-2.9); MEAN CORPUSCULAR HEMOGLOBIN 29.6 pg (29.0-33.0); MEAN CORPUSCULAR HGB CONC 28.5 g/dl (32.0-37.0); MEAN PLATELET VOLUME 10.9 fl (7.4-10.4); MONOCYTE # 0.7 10^3/ul (0.3-0.9); MONOCYTES % 7.6 % (0.0-11.0); NEUTROPHILS % 73.1 % (39.0-77.0); PLATELET COUNT 250 10^3/UL (140-415); POSITIVE DIFF @See below; RED BLOOD COUNT 2.97 10^6/ul (4.70-6.10); RED CELL DISTRIBUTION WIDTH 17.9 % (11.5-14.5)
[2019-06-13 09:27] LABS: WHITE BLOOD COUNT 9.6 10^3/ul (4.8-10.8)
[2019-06-13 09:53] LABS: ANION GAP 10 (5-13); CALCIUM 8.7 mg/dl (8.4-10.2); CARBON DIOXIDE 11 mmol/L (21-31); CHLORIDE 121 mmol/L (97-110); CREATININE 4.31 mg/dl (0.61-1.24); Estimated GFR 14 mL/min (>60); GLUCOSE 92 mg/dl (70-220); MAGNESIUM 2.2 mg/dl (1.7-2.5); PHOSPHORUS 6.3 mg/dl (2.5-4.9); POTASSIUM 4.2 mmol/L (3.5-5.1); SODIUM 142 mmol/L (135-144)
[2019-06-13 10:00] LABS: BLOOD UREA NITROGEN 125 mg/dl (7-20)
[2019-06-13] MEDS: LORAZEPAM 2 MG INJ IV (22:03)
[2019-06-13] MEDS: ATORVASTATIN 10 MG TAB GTB (22:04)
[2019-06-14] MEDS: VANCOMYCIN HCL 250 MG/5ML POSYG PO ×4 (01:16→18:07)
[2019-06-14] MEDS: CITRIC ACID/NA CITRATE 30 ML CUP PO ×2 (05:32→14:15)
[2019-06-14] MEDS: LANSOPRAZOLE (SOLTAB) 30 MG TAB GTB (05:32)
[2019-06-14 07:42] LABS: ADD MAN DIFF? NO
[2019-06-14 07:49] LABS: WHITE BLOOD COUNT 11.1 10^3/ul (4.8-10.8)
[2019-06-14 07:49] LABS: BASOPHIL # 0.1 10^3/ul (0.0-0.1); BASOPHILS % 0.7 % (0.0-2.0); EOSINOPHILS # 0.2 10^3/ul (0.0-0.5); EOSINOPHILS % 1.8 % (0.0-7.0); HEMATOCRIT 28.9 % (42.0-52.0); HEMOGLOBIN 8.7 g/dl (14.0-18.0); LYMPHOCYTES # 1.4 10^3/ul (0.8-2.9); LYMPHOCYTES % 12.3 % (15.0-51.0); MEAN CORPUSCULAR HGB CONC 30.1 g/dl (32.0-37.0); MEAN CORPUSCULAR VOLUME 102.8 fl (82.0-101.0); MEAN PLATELET VOLUME 11.2 fl (7.4-10.4); MONOCYTE # 0.7 10^3/ul (0.3-0.9); MONOCYTES % 5.9 % (0.0-11.0); NEUTROPHIL # 8.7 10^3/ul (1.6-7.5); NEUTROPHILS % 78.6 % (39.0-77.0); PLATELET COUNT 271 10^3/UL (140-415); RED BLOOD COUNT 2.81 10^6/ul (4.70-6.10); RED CELL DISTRIBUTION WIDTH 18.1 % (11.5-14.5)
[2019-06-14 08:17] LABS: POTASSIUM 4.2 mmol/L (3.5-5.1)
[2019-06-14 08:18] LABS: ANION GAP 10 (5-13); CALCIUM 8.9 mg/dl (8.4-10.2); CARBON DIOXIDE 14 mmol/L (21-31); CHLORIDE 122 mmol/L (97-110); CREATININE 4.42 mg/dl (0.61-1.24); Estimated GFR 14 mL/min (>60); GLUCOSE 115 mg/dl (70-220); MAGNESIUM 2.2 mg/dl (1.7-2.5); PHOSPHORUS 6.7 mg/dl (2.5-4.9); SODIUM 146 mmol/L (135-144)
[2019-06-14 08:31] LABS: BLOOD UREA NITROGEN 132 mg/dl (7-20)
[2019-06-14] MEDS: INSULIN ASPART [NOVOLOG] 3 ML PEN SC (09:00)
[2019-06-14] MEDS: DOXYCYCLINE 100 MG TAB PO (09:15)
[2019-06-14] MEDS: AMLODIPINE 5 MG TAB GTB (09:16)
[2019-06-14] MEDS: CHOLECALCIFEROL 1,000 UNIT TAB NGT (09:16)
[2019-06-14] MEDS: ZINC SULFATE 220 MG CAP NGT (09:16)
[2019-06-14] MEDS: COLLAGENASE 5 GM (UD JAR) TOP (09:17)
[2019-06-14] MEDS: traMADol 50 MG TAB GTB (09:17)
[2019-06-14] MEDS: ASPIRIN 81 MG TAB GTB (09:17)
[2019-06-14] MEDS: ASCORBIC ACID 500 MG TAB NGT (09:17)
[2019-06-14] MEDS: FINASTERIDE 5 MG TAB GTB (09:17)
[2019-06-14] MEDS: FERROUS SULFATE 60 MG/ML 5ML CUP NGT (09:17)
[2019-06-14] MEDS: MUPIROCIN 2% 22 GM OINT TOP (09:19)
[2019-06-14] MEDS: BALSAM PERU/CASTOR OIL 60 GM TUBE TOP (09:19)
[2019-06-14] MEDS ORDERED: HEPARIN 1000 UNITS/ML 10 ML INJ (15:21)
[2019-06-14] MEDS ORDERED: LIDOCAINE 1% (MDV) 20 ML INJ (15:21)
[2019-06-15] MEDS ORDERED: APIXABAN 5 MG TABLET GTB (09:00)
== END 2019-06-14 18:32 | DRG 870 ==
LOC: ICU 08:45 → TEL 06-07 14:50 → PP2 06-13 18:32
PROC: 5A1955Z Respiratory Ventilation, Greater than 96 Consecutive Hours (ICD-10-PCS; principal; 2019-06-05 12:30)
PROC: 0BH18EZ Insertion of Endotracheal Airway into Trachea, Via Natural or Artificial Opening Endoscopic (ICD-10-PCS; 2019-06-05 12:30)
PROC: 02HV33Z Insertion of Infusion Device into Superior Vena Cava, Percutaneous Approach (ICD-10-PCS; 2019-06-05 12:30)
PROC: 0DH63UZ Insertion of Feeding Device into Stomach, Percutaneous Approach (ICD-10-PCS; 2019-06-05 12:30)
PROC: 30233N1 Transfusion of Nonautologous Red Blood Cells into Peripheral Vein, Percutaneous Approach (ICD-10-PCS; 2019-06-05 12:30)
PROC: 02H633Z Insertion of Infusion Device into Right Atrium, Percutaneous Approach (ICD-10-PCS; 2019-06-05 12:30)
DX: A41.9 Sepsis, unspecified organism (principal); J96.02 Acute respiratory failure with hypercapnia; J69.0 Pneumonitis due to inhalation of food and vomit; G92 Toxic encephalopathy; E43 Unspecified severe protein-calorie malnutrition; N17.0 Acute kidney failure with tubular necrosis; J96.01 Acute respiratory failure with hypoxia; E87.2 Acidosis; R64 Cachexia; Z68.1 Body mass index [BMI] 19.9 or less, adult; N39.0 Urinary tract infection, site not specified; E87.4 Mixed disorder of acid-base balance; A04.72 Enterocolitis due to Clostridium difficile, not specified as recurrent; R65.20 Severe sepsis without septic shock; D64.9 Anemia, unspecified; E87.8 Other disorders of electrolyte and fluid balance, not elsewhere classified; E87.6 Hypokalemia; E78.5 Hyperlipidemia, unspecified; E11.22 Type 2 diabetes mellitus with diabetic chronic kidney disease; F03.90 Unspecified dementia, unspecified severity, without behavioral disturbance, psychotic disturbance, mood disturbance, and anxiety; H54.7 Unspecified visual loss; I73.9 Peripheral vascular disease, unspecified; I25.10 Atherosclerotic heart disease of native coronary artery without angina pectoris; I25.5 Ischemic cardiomyopathy; I12.9 Hypertensive chronic kidney disease with stage 1 through stage 4 chronic kidney disease, or unspecified chronic kidney disease; R13.12 Dysphagia, oropharyngeal phase; N18.9 Chronic kidney disease, unspecified; R33.9 Retention of urine, unspecified; I25.2 Old myocardial infarction; B96.20 Unspecified Escherichia coli [E. coli] as the cause of diseases classified elsewhere; Z16.12 Extended spectrum beta lactamase (ESBL) resistance; Z22.322 Carrier or suspected carrier of Methicillin resistant Staphylococcus aureus; Z89.511 Acquired absence of right leg below knee; Z90.3 Acquired absence of stomach [part of]; Z95.828 Presence of other vascular implants and grafts; Z87.440 Personal history of urinary (tract) infections; Z86.718 Personal history of other venous thrombosis and embolism; Z86.19 Personal history of other infectious and parasitic diseases; Z79.01 Long term (current) use of anticoagulants
CPT/HCPCS: 31500; 36430; 36573; 36600; 71045; 76775; 76937; 80048; 80053; 80202; 81001; 81003; 82043; 82270; 82607; 82728; 82746; 82803; 82962; 83540; 83605; 83735; 83880; 84100; 84155; 84300; 85025; 85045; 85610; 85730; 86850; 86900; 86901; 86920; 87040-91; 87045; 87070; 87075; 87081; 87086; 87177; 92526; 92610; 93306; 93970; 94002; 94003; 94660; 94770

== ENCOUNTER 2019-06-19 14:34 | Day surgery (SDC) | payer MEDICARE, OTHER ==
[2019-06-19] MEDS ORDERED: PROPOFOL 20 ML (14:46)
[2019-06-19] MEDS ORDERED: ONDANSETRON 4 MG INJ IV (15:00)
[2019-06-19] MEDS ORDERED: FENTAnyl 50 MCG/ML VIAL IV ×3 (15:00)
[2019-06-19] MEDS ORDERED: hydrALAzine 20 MG INJ IV (15:00)
[2019-06-19] MEDS ORDERED: LABETALOL HCL 20MG INJ IV (15:00)
== END 2019-06-19 16:36 | disposition other institution (70) ==
LOC: GIL 14:34
DX: R19.5 Other fecal abnormalities (principal); K64.4 Residual hemorrhoidal skin tags; K29.30 Chronic superficial gastritis without bleeding
CPT/HCPCS: 43239; 88305; 88312

== ENCOUNTER 2019-06-21 16:00 | Day surgery (SDC) | payer OTHER | END 2019-06-21 17:50 | disposition other institution (70) | LOC: CCL 17:50 | DX: I12.0 Hypertensive chronic kidney disease with stage 5 chronic kidney disease or end stage renal disease (principal); N18.6 End stage renal disease; E11.9 Type 2 diabetes mellitus without complications; I25.5 Ischemic cardiomyopathy; I73.9 Peripheral vascular disease, unspecified | CPT/HCPCS: 36561 ==